=== PATIENT | female | born 1945 | race Caucasian/White ===

== ENCOUNTER 2018-12-18 07:31 | Emergency (ER) | payer MEDICARE ==
[2018-12-18 07:48] VITALS: BP 168/81
--- NOTE | 2018-12-18 08:39 | EDM.PDOC ---
ED HPI GENERAL MEDICAL PROBLEM - General Chief Complaint: Genitourinary Problem Stated Complaint: BLOOD IN URINE Time Seen by Provider: 12/18/18 08:00 Source of Information: Reports: Patient History Limitations: Reports: No Limitations - History of Present Illness INITIAL COMMENTS - FREE TEXT/NARRATIVE: 73-year-old female with hematuria since last night. She has slight low back discomfort but no significant dysuria or increased frequency. No previous history of hematuria, she is not on anticoagulants. No trauma. Denies abdominal pain. Onset: Sudden Duration: Other (Roughly 12 hours) - Related Data Allergies Allergy/AdvReac Type Severity Reaction Status Date / Time amoxicillin Allergy Severe Swelling Verified 12/18/18 07:50 lidocaine [From Topicaine] Allergy Redness Verified 12/18/18 07:50 Home Meds: Home Meds Aspirin [Ted Chewable Aspirin] 1 tab PO DAILY 06/28/15 [History] Multivitamin [Multivitamins] 1 tab PO DAILY 06/28/15 [History] Past Medical History HEENT History: Reports: Cataract, Impaired Vision Gastrointestinal History: Reports: Chronic Constipation Genitourinary History: Reports: Retention, Urinary, Urinary Incontinence 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 L5. Musculoskeletal Surgical History: Reports: Hip Replacement, Other (See Below) Other Musculoskeletal Surgeries/Procedures:: partial left hip replacement, arm fracture repair Dermatological Surgical History: Reports: None Social & Family History - Family History Family Medical History: Noncontributory - Tobacco Use Smoking Status *Q: Current Every Day Smoker Years of Tobacco use: 55 Packs/Tins Daily: 0.5 Used Tobacco, but Quit: No Second Hand Smoke Exposure: No - Caffeine Use Caffeine Use: Reports: Coffee - Recreational Drug Use Recreational Drug Use: No ED ROS GENERAL - Review of Systems Review Of Systems: See Below Constitutional: Denies: Fever Respiratory: Denies: Shortness of Breath Cardiovascular: Denies: Chest Pain GI/Abdominal: Denies: Abdominal Pain, Nausea, Vomiting : Reports: Hematuria. Denies: Dysuria, Frequency, Urinary Retention Musculoskeletal: Reports: Back Pain (Chronic back pain) Skin: Reports: No Symptoms Neurological: Denies: Paresthesia Psychiatric: Reports: No Symptoms ED EXAM, RENAL/ - Physical Exam Exam: See Below Exam Limited By: No Limitations General Appearance: Alert, No Apparent Distress Respiratory/Chest: No Respiratory Distress, Lungs Clear GI/Abdominal: Soft, Non-Tender Back Exam: No: CVA Tenderness (R), CVA Tenderness (L) Neurological: Alert, Oriented Psychiatric: Normal Affect, Normal Mood Skin Exam: Warm, Dry Course - Vital Signs Last Recorded V/S: Last Vital Signs Temp 97.0 F 12/18/18 07:51 Pulse 92 12/18/18 07:51 Resp 16 12/18/18 07:51 BP 168/81 H 12/18/18 07:51 Pulse Ox 92 L 12/18/18 07:51 - Orders/Labs/Meds Orders: Active Orders 24 hr Category Date Time Status CULTURE URINE [RM] Stat Lab 12/18/18 08:58 Received Labs: Laboratory Tests 12/18/18 Range/Units 08:28 Urine Color Red Urine Appearance Turbid Urine pH 7.0 (4.5-8.0) Ur Specific [place] 1.015 (1.008-1.030) Urine Protein 100 H (NEGATIVE) mg/dL Urine Glucose (UA) Normal (NEGATIVE) mg/dL Urine Ketones Negative (NEGATIVE) mg/dL Urine Occult Blood Large (NEGATIVE) Urine Nitrite Negative (NEGATIVE) Urine Bilirubin Negative (NEGATIVE) Urine Urobilinogen Normal (NORMAL) mg/dL Ur Leukocyte Esterase Moderate (NEGATIVE) Urine RBC Packed H (0-5) Urine WBC 20-30 H (0-5) Ur Epithelial Cells Few Amorphous Sediment Not seen Urine Bacteria Few Urine Mucus Not seen - Re-Assessments/Exams Free Text/Narrative Re-Assessment/Exam: 12/18/18 08:39 A UA was obtained. 12/18/18 09:02 UA shows packed RBCs, also white blood cells and bacteria. A culture was initiated, and the patient was placed on Macrobid 100 mg twice daily. She'll return if worsening despite treatment such as heavier bleeding, dizziness or fever or increased pain. Otherwise recheck the urine in one week. Departure - Departure Time of Disposition: 09:13 Disposition: Home, Self-Care 01 Condition: Good Clinical Impression: Cystitis Hematuria Qualifiers: Hematuria type: gross Qualified Code(s): R31.0 - Gross hematuria - Discharge Information Instructions: Hematuria, Adult Referrals: Man Ann MD [Primary Care Provider] - Forms: ED Department Discharge Care Plan Goals: Take antibiotic twice daily for 7 days. Recheck the urine after you are done with the antibiotic. Return sooner if not improving after 2 or 3 days or any time if worsening such as increased pain or fever. - My Orders Last 24 Hours: My Active Orders 12/18/18 08:58 CULTURE URINE [RM] Stat - Assessment/Plan Last 24 Hours: My Active Orders 12/18/18 08:58 CULTURE URINE [RM] Stat
== END 2018-12-18 09:15 | disposition home or self-care (01) ==
LOC: JP.ED 07:31
DX: N30.91 Cystitis, unspecified with hematuria (principal); F17.210 Nicotine dependence, cigarettes, uncomplicated; Z88.0 Allergy status to penicillin; Z88.4 Allergy status to anesthetic agent; Z79.82 Long term (current) use of aspirin
CPT/HCPCS: 81001; 87086; 99283; 99284

== ENCOUNTER 2021-07-02 14:49 | Emergency (ER) | payer MEDICARE ==
--- NOTE | 2021-07-02 16:04 | EDM.PDOC ---
ED HPI GENERAL MEDICAL PROBLEM - General Chief Complaint: Genitourinary Problem Stated Complaint: DIFFICULTY URINATING Time Seen by Provider: 07/02/21 15:29 Source of Information: Reports: Patient History Limitations: Reports: No Limitations - History of Present Illness INITIAL COMMENTS - FREE TEXT/NARRATIVE: 75 yo female presents today with increasing hematuria. She has just finished 7 days of macrobid for UTI and states that the bleeding has worsened. She does not feel ill. denies fevers. has had a decrease in appetite. denies fatigue or lightheadedness. She does feel that she is not fully emptying her bladder when she urinates. the hematuria has been intermittent over the last 3 years. 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 L5. Musculoskeletal Surgical History: Reports: Hip Replacement, Other (See Below) Other Musculoskeletal Surgeries/Procedures:: partial left hip replacement, arm fracture repair Dermatological Surgical History: Reports: None Social & Family History - Family History Family Medical History: No Pertinent Family History - Tobacco Use Tobacco Use Status *Q: Current Every Day Tobacco User Years of Tobacco use: 40 Packs/Tins Daily: 0.5 - Caffeine Use Caffeine Use: Reports: Coffee - Recreational Drug Use Recreational Drug Use: No ED ROS GENERAL - Review of Systems Review Of Systems: See Below Constitutional: Denies: Fever, Chills, Malaise, Fatigue Respiratory: Denies: Shortness of Breath, Wheezing, Cough Cardiovascular: Denies: Chest Pain GI/Abdominal: Reports: Anorexia. Denies: Abdominal Pain, Constipation, Diarrhea : Reports: Dysuria, Hematuria. Denies: Flank Pain ED EXAM, GI/ABD - Physical Exam Exam: See Below Exam Limited By: No Limitations General Appearance: Alert, WD/WN, No Apparent Distress Respiratory/Chest: No Respiratory Distress, Lungs Clear, Normal Breath Sounds, No Accessory Muscle Use, Chest Non-Tender. No: Crackles, Rhonchi, Wheezing Cardiovascular: Regular Rate, Rhythm, No Murmur GI/Abdominal Exam: Soft, Tender (suprapubic tenderness/fullness) Course - Vital Signs Last Recorded V/S: Last Vital Signs Temp 36.5 C 07/02/21 15:13 Pulse 80 07/02/21 17:38 Resp 12 07/02/21 17:38 BP 149/92 H 07/02/21 17:38 Pulse Ox 94 L 07/02/21 17:38 - Orders/Labs/Meds Orders: Active Orders 24 hr Category Date Time Status Iopamidol [Isovue-300 (61%)] Med 07/02/21 17:05 Active 96 ml IV . DIRECTED PRN Sodium Chloride 0.9% [Normal Saline] 1,000 ml Med 07/02/21 16:15 Active IV ASDIRECTED Sodium Chloride 0.9% [Normal Saline] 100 ml Med 07/02/21 17:15 Active IV ASDIRECTED Medication Orders Sodium Chloride (Normal Saline) 1,000 mls @ 500 mls/hr IV ASDIRECTED SANTOS Last Admin: 07/02/21 16:12 Dose: 500 mls/hr Documented by: SONY Sodium Chloride (Normal Saline) 100 mls @ 3 mls/sec IV ASDIRECTED SANTOS Last Admin: 07/02/21 17:35 Dose: 3 mls/sec Documented by: OSMAN Iopamidol (Iopamidol 612 Mg/Ml 100 Ml Bottle) 96 ml IV . DIRECTED PRN PRN Reason: RADIOLOGY EXAM Stop: 07/03/21 17:06 Last Admin: 07/02/21 17:34 Dose: 96 ml Documented by: OSMAN Labs: Laboratory Tests 07/02/21 07/02/2121 Range/Units 15:56 16:20 16:20 WBC 6.8 (4.5-11.0) K/uL RBC 4.33 (3.30-5.50) M/uL Hgb 13.0 (12.0-15.0) g/dL Hct 39.6 (36.0-48.0) % MCV 92 (80-98) fL MCH 30 (27-31) pg MCHC 33 (32-36) % Plt Count 214 (150-400) K/uL Neut % (Auto) 49.2 (36-66) % Lymph % (Auto) 36.5 (24-44) % [place] % (Auto) 11.7 H (2-6) % Eos % (Auto) 2.3 (2-4) % Baso % (Auto) 0.3 (0-1) % Sodium 137 L (140-148) mmol/L Potassium 4.3 (3.6-5.2) mmol/L Chloride 101 (100-108) mmol/L Carbon Dioxide 31 (21-32) mmol/L Anion Gap 9.3 (5.0-14.0) mmol/L BUN 20 H (7-18) mg/dL Creatinine 0.7 (0.6-1.0) mg/dL Est Cr Clr Drug Dosing 59.96 mL/min Estimated GFR (MDRD) > 60 (>60) Glucose 84 (74-106) mg/dL Calcium 9.0 (8.5-10.1) mg/dL Urine Color Red A (YELLOW) Urine Appearance Turbid A (CLEAR) Urine Occult Blood Large H (NEGATIVE) Urine RBC Packed H (0-5) Urine WBC 0-5 (0-5) Ur Epithelial Cells Not seen Amorphous Sediment Not seen Urine Bacteria Few Urine Mucus Not seen Urine Other Urinalysis Comment Meds: Medications Generic Name Dose Route Start Last Admin Trade Name Freq PRN Reason Stop Dose Admin Sodium Chloride 1,000 mls @ 500 mls/hr 07/02/21 16:15 07/02/21 16:12 Normal Saline IV 500 mls/hr ASDIRECTED SANTOS Administration Sodium Chloride 100 mls @ 3 mls/sec 07/02/21 17:15 07/02/21 17:35 Normal Saline IV 3 mls/sec ASDIRECTED SANTOS Administration Iopamidol 96 ml 07/02/21 17:05 07/02/21 17:34 Iopamidol 612 Mg/Ml 100 Ml Bottle IV 07/03/21 17:06 96 ml . DIRECTED PRN Administration RADIOLOGY EXAM Discontinued Medications Generic Name Dose Route Start Last Admin Trade Name Samm PRN Reason Stop Dose Admin Sodium Chloride 10 ml 07/02/21 17:05 07/02/21 17:35 Sodium Chloride 0.9% 10 Ml Sdv FLUSH 07/02/21 17:06 10 ml ONETIME ONE Administration - Re-Assessments/Exams Free Text/Narrative Re-Assessment/Exam: 07/02/21 18:35 UA was obtained upon arrival. This sample had clots and tissue. analysis was not indicative of acute UTI but awaiting culture. HGB normal with normal red blood cell size and volume. She did have post void residual greater then 400 so cath was placed resulting in clots then pnk colored urine. She had great relief. CT completed. pt will follow-up with PCP with destination urology for full evaluation of gaby hematuria Departure - Departure Time of Disposition: 18:38 Disposition: Home, Self-Care 01 Condition: Good Clinical Impression: Hematuria Qualifiers: Hematuria type: gross Qualified Code(s): R31.0 - Gross hematuria - Discharge Information *PRESCRIPTION DRUG MONITORING PROGRAM REVIEWED*: Not Applicable *COPY OF PRESCRIPTION DRUG MONITORING REPORT IN PATIENT MICHELA: Not Applicable Instructions: Hematuria, Adult Referrals: Man Ann MD [Primary Care Provider] - Forms: ED Department Discharge Additional Instructions: follow-up with your primary care provider this week request urology consultation for full evaluation of gaby hematuria maintain fluid intake at greater then 64 ounces you will be contacted if urine culture grows bacteria that would need to be treated Sepsis Event Note (ED) - Evaluation Sepsis Screening Result: No Definite Risk - Focused Exam Vital Signs: Vital Signs Temp Pulse Resp BP Pulse Ox 07/02/21 17:38 80 12 149/92 H 94 L 07/02/21 16:16 78 12 160/78 H 95 07/02/21 15:13 36.5 C 78 16 174/62 H 96 07/02/21 15:05 36.5 C 78 16 174/62 H 96 - My Orders Last 24 Hours: My Active Orders 07/02/21 16:15 Sodium Chloride 0.9% [Normal Saline] 1,000 ml IV ASDIRECTED 07/02/21 17:05 Iopamidol [Isovue-300 (61%)] 96 ml IV . DIRECTED PRN 07/02/21 17:15 Sodium Chloride 0.9% [Normal Saline] 100 ml IV ASDIRECTED - Assessment/Plan Last 24 Hours: My Active Orders 07/02/21 16:15 Sodium Chloride 0.9% [Normal Saline] 1,000 ml IV ASDIRECTED 07/02/21 17:05 Iopamidol [Isovue-300 (61%)] 96 ml IV . DIRECTED PRN 07/02/21 17:15 Sodium Chloride 0.9% [Normal Saline] 100 ml IV ASDIRECTED
[2021-07-02] MEDS ORDERED: Sodium Chloride 0.9% 1,000 ML IV SCH (16:15)
[2021-07-02] MEDS ORDERED: Sodium Chloride 0.9% 10 ML SDV FLUSH ONE (17:05)
[2021-07-02] MEDS ORDERED: Iopamidol 612 MG/ML 100 ML Bottle IV PRN (17:05)
[2021-07-02] MEDS ORDERED: Sodium Chloride 0.9% 100 ML IV SCH (17:15)
[2021-07-02 17:39] VITALS: BP 149/92; PULSE 80
--- NOTE | 2021-07-02 18:19 | CRLCT ---
For Patients: As a result of the Century Cures Act, medical imaging exams and procedure reports are released immediately into your electronic medical record. You may view this report before your referring provider. If you have questions, please contact your health care provider. Indication: Unable to urinate. Blood in urine. Technique: Contrast CT abdomen and pelvis. Comparison: CT abdomen and pelvis 05/22/2018 Findings: The heart size is normal. Basilar atelectasis. No effusion. Spleen adrenal glands unremarkable liver unremarkable gallbladder unremarkable. No abdominal aortic aneurysm. Symmetric enhancement of both kidneys nonobstructing renal calculi. Bilateral renal cysts. No hydronephrosis. Large amount of stool within the colon diverticulosis. No obstruction. Left hip arthroplasty causing streak artifact in the pelvis with poor visualization urinary bladder. There a Schumacher in the urinary bladder which grossly is unremarkable but difficult to visualize given significant streak artifact. 2.3 centimeter right adnexal cyst is slightly increased in size since prior study. Umbilical hernia with small amount of fluid in the hernia and fat. Moderate L1 compression fracture age indeterminate. Old right superior pubic ramus and bilateral inferior pubic rami fractures. Impression: 1. Bilateral renal cysts. No hydronephrosis. Schumacher in the urinary bladder which is difficult to visualize given streak artifact. 2. No acute findings in the abdomen or pelvis. Abundant stool in the colon diverticulosis. 3. Minimal enlargement of right adnexal cyst measuring 2.3 centimeters recommend routine pelvic ultrasound. Please note that all CT scans at this facility use dose modulation, iterative reconstruction, and/or weight-based dosing when appropriate to reduce radiation dose to as low as reasonably achievable. Dictated by Kath Calderon MD @ 07/02/2021 6:18:32 PM (Electronically Signed)
== END 2021-07-02 19:06 | disposition home or self-care (01) ==
LOC: JP.ED 14:49
DX: R31.0 Gross hematuria (principal); Z88.0 Allergy status to penicillin; Z88.4 Allergy status to anesthetic agent; Z79.82 Long term (current) use of aspirin; Z72.0 Tobacco use
CPT/HCPCS: 36415; 74177; 80048; 81001; 85025; 87086; 99284; J7030; Q9967

== ENCOUNTER 2021-07-03 10:35 | Emergency (ER) | payer MEDICARE ==
[2021-07-03 11:06] VITALS: BP 139/70; PULSE 79
--- NOTE | 2021-07-03 11:52 | EDM.PDOC ---
ED HPI GENERAL MEDICAL PROBLEM - General Chief Complaint: Genitourinary Problem Stated Complaint: CANNOT PASS URINE Time Seen by Provider: 07/03/21 11:11 Source of Information: Reports: Patient History Limitations: Reports: No Limitations - History of Present Illness INITIAL COMMENTS - FREE TEXT/NARRATIVE: 75 yo female presents to the ER for the 2nd time this weekend with inability to void. She has gaby hematuria. This has been present for many days. Yesterday a catheter was placed and initially clots and tissue passed then pink tinged urine. Cath was removed when she departed the ER. After discharge she urinated normally throughout the rest of the evening, one time through the night. On waking this AM she was unable to pass her urine. She became increasingly un comfortable with suprapubic pressure. denies nausea or vomiting, diarrhea or general ill feeling. She denies lightheadedness. She was able to walk the 4 block from her apartment to the hospital without difficulty. 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 L5. Musculoskeletal Surgical History: Reports: Hip Replacement, Other (See Below) Other Musculoskeletal Surgeries/Procedures:: partial left hip replacement, arm fracture repair Dermatological Surgical History: Reports: None Social & Family History - Family History Family Medical History: No Pertinent Family History - Tobacco Use Tobacco Use Status *Q: Never Tobacco User - Caffeine Use Caffeine Use: Reports: Coffee ED ROS GENERAL - Review of Systems Review Of Systems: See Below Constitutional: Denies: Fever, Chills, Fatigue Respiratory: Denies: Shortness of Breath, Wheezing, Cough Cardiovascular: Denies: Chest Pain GI/Abdominal: Denies: Abdominal Pain : Reports: Hematuria, Urinary Retention ED EXAM, GI/ABD - Physical Exam Exam: See Below Exam Limited By: No Limitations General Appearance: Alert, WD/WN, No Apparent Distress Head: Atraumatic, Normocephalic Respiratory/Chest: No Respiratory Distress, Lungs Clear, Normal Breath Sounds. No: Crackles, Rhonchi, Wheezing Cardiovascular: Regular Rate, Rhythm, No Murmur GI/Abdominal Exam: Normal Bowel Sounds, Soft, Non-Tender Back Exam: No: CVA Tenderness (R), CVA Tenderness (L) Neurological: Alert, Oriented Psychiatric: Normal Affect, Normal Mood Skin Exam: Warm, Dry, Intact Course - Vital Signs Last Recorded V/S: Last Vital Signs Temp 36.6 C 07/03/21 11:10 Pulse 79 07/03/21 11:10 Resp 16 07/03/21 11:10 BP 139/70 07/03/21 11:10 Pulse Ox 90 L 07/03/21 11:10 - Orders/Labs/Meds Labs: Laboratory Tests 07/03/21 07/03/21 Range/Units 11:38 11:58 Hgb 13.0 (12.0-15.0) g/dL Urine Color Red A (YELLOW) Urine Appearance Turbid A (CLEAR) Urine pH 5.5 (5.0-8.0) Ur Specific [place] 1.015 (1.008-1.030) Urine Protein (NEGATIVE) mg/dL Urine Glucose (UA) Negative (NEGATIVE) mg/dL Urine Ketones (NEGATIVE) mg/dL Urine Occult Blood Large H (NEGATIVE) Urine Nitrite Negative (NEGATIVE) Urine Bilirubin (NEGATIVE) Urine Urobilinogen (0.2-1.0) EU/dL Ur Leukocyte Esterase (NEGATIVE) Urine RBC Packed H (0-5) Urine WBC 30-40 H (0-5) Ur Epithelial Cells Not seen Amorphous Sediment Not seen Urine Bacteria Moderate Urine Mucus Few - Re-Assessments/Exams Free Text/Narrative Re-Assessment/Exam: 07/03/21 12:19 pt evaluated on arrival to ER in no apparent distress. Cath was placed and her pelvic pressure was relieved. sample was collected and today's sample did have WBC and moderate bacteria without nitrates. will culture and start on antibiotics today. She has just finished a coarse of Macrobid last week will initiate cipro 250 mg twice daily for 7 days. She will DC home with catheter to follow-up tomorrow morning with PCP. Departure - Departure Time of Disposition: 12:24 Disposition: Home, Self-Care 01 Condition: Good Clinical Impression: UTI, Urinary tract infectious disease, Urinary retention Hematuria Qualifiers: Hematuria type: gross Qualified Code(s): R31.0 - Gross hematuria - Discharge Information *PRESCRIPTION DRUG MONITORING PROGRAM REVIEWED*: Not Applicable *COPY OF PRESCRIPTION DRUG MONITORING REPORT IN PATIENT MICHELA: Not Applicable Instructions: Indwelling Urinary Catheter Care, Adult Referrals: Man Ann MD [Primary Care Provider] - Forms: ED Department Discharge Additional Instructions: follow-up with your primary care tomorrow morning and ask for a urology referral he may want to see you in clinic let him know that you were in the emergency room twice this weekend with urinary retention and gaby bloody urine today's urine sample had bacteria and WBC so antibiotic was started today. your hemiglobin was 13 yesterday and also 13 today, so that is doing good goal fluid intake is 64 ounce per day Sepsis Event Note (ED) - Evaluation Sepsis Screening Result: No Definite Risk - Focused Exam Vital Signs: Vital Signs Temp Pulse Resp BP Pulse Ox 07/03/21 11:10 36.6 C 79 16 139/70 90 L 07/03/21 11:05 36.6 C 79 16 139/70 90 L
== END 2021-07-03 13:05 | disposition home or self-care (01) ==
LOC: JP.ED 10:35
DX: N39.0 Urinary tract infection, site not specified (principal); R33.9 Retention of urine, unspecified; R31.9 Hematuria, unspecified; Z88.0 Allergy status to penicillin; Z88.4 Allergy status to anesthetic agent; Z79.82 Long term (current) use of aspirin
CPT/HCPCS: 36415; 51702; 81001; 85018; 99284-25

== ENCOUNTER 2021-07-11 00:56 | Emergency (ER) | payer MEDICARE ==
[2021-07-11 01:15] VITALS: BP 140/80; PULSE 87
--- NOTE | 2021-07-11 01:33 | EDM.PDOC ---
ED HPI GENERAL MEDICAL PROBLEM - General Chief Complaint: Genitourinary Problem Stated Complaint: CATH ISSUES Time Seen by Provider: 07/11/21 01:28 Source of Information: Reports: Patient, Old Records, RN History Limitations: Reports: No Limitations - History of Present Illness INITIAL COMMENTS - FREE TEXT/NARRATIVE: 75 yo female here with urinary retention. No fever, chills, nausea or vomiting. Got her last catheter out this past Saturday and did OK until tonight when she awoke with a full bladder and unable to void. Is followed by urology for this problem. 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: Other (see below) (none) Left Middle Bladder Pain Score (Numeric/FACES): 8 - Related Data Allergies Allergy/AdvReac Type Severity Reaction Status Date / Time amoxicillin Allergy Severe Swelling Verified 07/03/21 11:11 lidocaine [From Topicaine] Allergy Redness Verified 07/03/21 11:11 Home Meds: Home Meds Aspirin [Ted Chewable Aspirin] 1 tab PO DAILY 06/28/15 [History] Multivitamin [Multivitamins] 1 tab PO DAILY 06/28/15 [History] Past Medical History HEENT History: Reports: Cataract, Impaired Vision Gastrointestinal History: Reports: Chronic Constipation Genitourinary History: Reports: Retention, Urinary, Urinary Incontinence 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 L5. Musculoskeletal Surgical History: Reports: Hip Replacement, Other (See Below) Other Musculoskeletal Surgeries/Procedures:: partial left hip replacement, arm fracture repair Dermatological Surgical History: Reports: None Social & Family History - Family History Family Medical History: No Pertinent Family History - Tobacco Use Tobacco Use Status *Q: Current Every Day Tobacco User Years of Tobacco use: 54 Packs/Tins Daily: 0.5 - Caffeine Use Caffeine Use: Reports: Coffee - Recreational Drug Use Recreational Drug Use: No ED ROS GENERAL - Review of Systems Review Of Systems: See Below Constitutional: Reports: No Symptoms : Reports: Urinary Retention Skin: Reports: No Symptoms Neurological: Reports: No Symptoms ED EXAM, RENAL/ - Physical Exam Exam: See Below Exam Limited By: No Limitations General Appearance: Alert, WD/WN, Mild Distress (Female) Exam: Other (bladder distention on exam and per bladder scan) Back Exam: Normal Inspection. No: CVA Tenderness (R), CVA Tenderness (L) Extremities: Normal Inspection, Normal Range of Motion, Non-Tender, No Pedal Edema Neurological: Alert, Oriented, CN II-XII Intact, Normal Cognition, No Motor/Sensory Deficits Psychiatric: Normal Affect, Normal Mood Skin Exam: Warm, Dry, Intact, Normal Color, No Rash Course - Vital Signs Last Recorded V/S: Last Vital Signs Temp 36.4 C 07/11/21 01:11 Pulse 87 07/11/21 01:11 Resp 16 07/11/21 01:11 BP 140/80 07/11/21 01:11 Pulse Ox 92 L 07/11/21 01:11 - Orders/Labs/Meds Orders: Active Orders 24 hr Category Date Time Status Schumacher Catheter Insertion [Insert Urinary Catheter] [OM. Care 07/11/21 01:30 Ordered PC] Q24H Urinary Catheter Assessment [RC] ASDIRECTED Care 07/11/21 01:28 Ordered CULTURE URINE [RM] Stat Lab 07/11/21 01:27 Ordered Departure - Departure Time of Disposition: 01:34 Disposition: Home, Self-Care 01 Condition: Good Clinical Impression: Urinary retention - Discharge Information *PRESCRIPTION DRUG MONITORING PROGRAM REVIEWED*: Not Applicable *COPY OF PRESCRIPTION DRUG MONITORING REPORT IN PATIENT MICHELA: Not Applicable Referrals: PCP,None [Primary Care Provider] - Additional Instructions: Follow up with urology as scheduled. Return as needed. Sepsis Event Note (ED) - Evaluation Sepsis Screening Result: No Definite Risk - Focused Exam Vital Signs: Vital Signs Temp Pulse Resp BP Pulse Ox 07/11/21 01:11 36.4 C 87 16 140/80 92 L - My Orders Last 24 Hours: My Active Orders 07/11/21 01:27 CULTURE URINE [RM] Stat 07/11/21 01:28 Urinary Catheter Assessment [RC] ASDIRECTED 07/11/21 01:30 Schumacher Catheter Insertion [Insert Urinary Catheter] [OM.PC] Q24H - Assessment/Plan Last 24 Hours: My Active Orders 07/11/21 01:27 CULTURE URINE [RM] Stat 07/11/21 01:28 Urinary Catheter Assessment [RC] ASDIRECTED 07/11/21 01:30 Schumacher Catheter Insertion [Insert Urinary Catheter] [OM.PC] Q24H
== END 2021-07-11 01:57 | disposition home or self-care (01) ==
LOC: JP.ED 00:56
DX: R33.9 Retention of urine, unspecified (principal); Z88.0 Allergy status to penicillin; Z88.6 Allergy status to analgesic agent; Z79.82 Long term (current) use of aspirin; Z72.0 Tobacco use
CPT/HCPCS: 51702; 87086; 99284-25

== ENCOUNTER 2021-07-15 08:34 | Emergency (ER) | payer MEDICARE ==
[2021-07-15] MEDS ORDERED: Ketorolac 10 MG Tab PO ONE (09:15)
--- NOTE | 2021-07-15 09:29 | EDM.PDOC ---
ED HPI GENERAL MEDICAL PROBLEM - General Chief Complaint: Back Pain or Injury Stated Complaint: back pain Time Seen by Provider: 07/15/21 09:10 Source of Information: Reports: Patient History Limitations: Reports: No Limitations - History of Present Illness INITIAL COMMENTS - FREE TEXT/NARRATIVE: 75-year-old female with chronic recurring lower back issues, also known lumbar disc disease, had been doing relatively well but this morning she was pushing a bed when she felt a snap in her right lower back. She did not have a lot of pain right away but she came diaphoretic and lightheaded and had to sit down. When she tried to get up she noticed that was intense local pain in the right lumbar area just above the sacrum. No radiculopathy, no symptoms down her legs, no nausea or vomiting. She called her [id number] to come in and have her examined, she has very little discomfort if lying still but movement causes increased pain. She has not taken anything for pain at this point. Onset: Sudden Duration: Hour(s): (Within the last 2 hours) Location: Reports: Other (Right lumbar spine) Improves with: Reports: Rest Worsens with: Reports: Movement back Pain Score (Numeric/FACES): 7 - Related Data Allergies Allergy/AdvReac Type Severity Reaction Status Date / Time amoxicillin Allergy Severe Swelling Verified 07/15/21 08:55 lidocaine [From Topicaine] Allergy Redness Verified 07/15/21 08:55 Home Meds: Home Meds Aspirin [Ted Chewable Aspirin] 1 tab PO DAILY 06/28/15 [History] Multivitamin [Multivitamins] 1 tab PO DAILY 06/28/15 [History] Past Medical History HEENT History: Reports: Cataract, Impaired Vision Gastrointestinal History: Reports: Chronic Constipation Genitourinary History: Reports: Retention, Urinary, Urinary Incontinence, UTI, Recurrent, Other (See Below) Other Genitourinary History: indwelling catheter until cystoscopy 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 L5. Musculoskeletal Surgical History: Reports: Hip Replacement, Other (See Below) Other Musculoskeletal Surgeries/Procedures:: partial left hip replacement, arm fracture repair Dermatological Surgical History: Reports: None Social & Family History - Family History Family Medical History: No Pertinent Family History - Tobacco Use Tobacco Use Status *Q: Current Every Day Tobacco User Years of Tobacco use: 60 Packs/Tins Daily: 0.5 - Caffeine Use Caffeine Use: Reports: Coffee - Recreational Drug Use Recreational Drug Use: No ED ROS GENERAL - Review of Systems Review Of Systems: See Below Constitutional: Denies: Fever, Chills, Malaise HEENT: Reports: No Symptoms Respiratory: Denies: Shortness of Breath Cardiovascular: Denies: Chest Pain Endocrine: Denies: Fatigue GI/Abdominal: Reports: Nausea (Some nausea initially, that is resolved). Denies: Abdominal Pain, Vomiting : Reports: Other (She has an indwelling catheter) Musculoskeletal: Reports: Back Pain (See HPI) Skin: Denies: Rash, Erythema Neurological: Denies: Paresthesia Psychiatric: Reports: No Symptoms ED EXAM,LOWER BACK PAIN/INJURY - Physical Exam Exam: See Below Exam Limited By: No Limitations General Appearance: Alert, No Apparent Distress, Other (Patient is resting supine comfortably on the exam bed) Eye Exam: Bilateral Eye: Normal Inspection Head: Atraumatic Neck: Supple, Non-Tender Respiratory/Chest: Lungs Clear Cardiovascular: Regular Rate, Rhythm Back Exam: Paraspinal Tenderness (Patient has significant focal paraspinal tenderness when palpating to the right of the lumbar spine above the sacrum around the L4 and L5 area) Extremities: Other (Just minimal increase in back pain with movement of the hips passively including internal and external rotation of both hips, no straight l eg raising symptoms other than a mild pulling of her back) Course - Vital Signs Last Recorded V/S: Last Vital Signs Temp 97.6 F 07/15/21 09:01 Pulse 66 07/15/21 10:00 Resp 12 07/15/21 10:00 BP 142/59 H 07/15/21 10:00 Pulse Ox 92 L 07/15/21 10:00 - Orders/Labs/Meds Meds: Medications Discontinued Medications Generic Name Dose Route Start Last Admin Trade Name Freq PRN Reason Stop Dose Admin Ketorolac Tromethamine 10 mg 07/15/21 09:15 07/15/21 09:28 Ketorolac 10 Mg Tab PO 07/15/21 09:16 10 mg ONETIME ONE Administration - Re-Assessments/Exams Free Text/Narrative Re-Assessment/Exam: 07/15/21 09:28 I am concerned she may have injured a transverse process rather than just a ligament injury, so a CT of the lumbar spine without contrast was ordered. If this is negative this is a soft tissue injury and will be treated conservatively. 07/15/21 10:48 IMPRESSION: 1. No acute abnormality apparent. 2. Moderate L1 compression fracture and mild compression fractures of L3 and L5, as before. 3. Osteopenia/osteoporosis. 4. Multilevel degenerative changes, including L5-S1 fusion. No clearly significant canal or foraminal stenosis. Oral Toradol seem to help, she is moving better. She will be discharged with 10 doses of Toradol to take twice a day and encouraged to increase activity as tolerated. She can return anytime if worsening or consider recheck in 3 to 4 days if not improving satisfactorily. Departure - Departure Time of Disposition: 11:18 Disposition: Home, Self-Care 01 Clinical Impression: Acute low back pain Qualifiers: Back pain laterality: right Sciatica presence: without sciatica Qualified Code(s): M54.5 - Low back pain - Discharge Information Instructions: Acute Back Pain, Adult Referrals: Man Ann MD [Primary Care Provider] - Forms: ED Department Discharge Care Plan Goals: Take 1 ketorolac pill twice daily and continue your other regular medications as well. It is safe to take Tylenol along with ketorolac. Return anytime if worsening despite treatment, or consider rechecking in 3 or 4 days if not improving satisfactorily. Physical therapy may be necessary or advised at that time. Sepsis Event Note (ED) - Evaluation Sepsis Screening Result: No Definite Risk - Focused Exam Vital Signs: Vital Signs Temp Pulse Resp BP Pulse Ox 07/15/21 10:00 66 12 142/59 H 92 L 07/15/21 09:01 97.6 F 71 16 139/62 93 L 07/15/21 08:54 97.6 F 71 16 139/62 93 L
[2021-07-15 10:43] VITALS: BP 142/59; PULSE 66
--- NOTE | 2021-07-15 10:43 | CRLCT ---
For Patients: As a result of the Century Cures Act, medical imaging exams and procedure reports are released immediately into your electronic medical record. You may view this report before your referring provider. If you have questions, please contact your health care provider. INDICATION: Sudden pain and crack while pushing on something. TECHNIQUE: Volumetric helical scanning of the lumbar spine was performed without contrast material. Sagittal and coronal reconstructions were also obtained. COMPARISON: Abdomen/pelvis CT of 07/02/2021. FINDINGS: There is no obvious acute fracture. A moderate L1 compression fracture is demonstrated as well as mild L3 and L5 compression fractures, as on the previous examination. Multilevel degenerative changes are again demonstrated. L5 and S1 are fused. No spondylolisthesis or curvature abnormality is noted. There is no clearly significant canal or foraminal stenosis. The bones are osteopenic/osteoporotic. IMPRESSION: 1. No acute abnormality apparent. 2. Moderate L1 compression fracture and mild compression fractures of L3 and L5, as before. 3. Osteopenia/osteoporosis. 4. Multilevel degenerative changes, including L5-S1 fusion. No clearly significant canal or foraminal stenosis. Please note that all CT scans at this facility use dose modulation, iterative reconstruction, and/or weight-based dosing when appropriate to reduce radiation dose to as low as reasonably achievable. Dictated by Rosales Pruitt MD @ 07/15/2021 10:41:52 AM (Electronically Signed)
== END 2021-07-15 11:18 | disposition home or self-care (01) ==
LOC: JP.ED 08:34
DX: M54.5 Low back pain (principal); Z88.0 Allergy status to penicillin; Z88.6 Allergy status to analgesic agent; Z79.82 Long term (current) use of aspirin; Z72.0 Tobacco use
CPT/HCPCS: 72131; 99283-25; A9270-GY

== ENCOUNTER 2021-07-24 10:02 | Emergency (ER) | payer MEDICARE ==
[2021-07-24 10:19] VITALS: BP 144/72; PULSE 97
--- NOTE | 2021-07-24 10:48 | EDM.PDOC ---
ED HPI GENERAL MEDICAL PROBLEM - General Chief Complaint: General Stated Complaint: DR SAID SHE HAD AN INFECTION,NEEDS BLOOD TEST Time Seen by Provider: 07/24/21 10:26 Source of Information: Reports: Patient, Old Records, RN Notes Reviewed History Limitations: Reports: No Limitations - History of Present Illness INITIAL COMMENTS - FREE TEXT/NARRATIVE: 75-year-old female presents emergency department today unsure exactly why she is here. She states her physician in [place] told her to go to the emergency department to get a blood test. However I did review the records it appears she is following with urology and complaints of blood in the urine and the fever and it looks like a urinalysis has been requested. However she states she has had sinus congestion had fevers with night sweats she is unvaccinated for Covid - Related Data Allergies Allergy/AdvReac Type Severity Reaction Status Date / Time amoxicillin Allergy Severe Swelling Verified 07/24/21 10:20 lidocaine [From Topicaine] Allergy Redness Verified 07/24/21 10:20 Home Meds: Home Meds Multivitamin [Multivitamins] 1 tab PO DAILY 06/28/15 [History] Ketorolac [Toradol] 10 mg PO TID PRN 07/24/21 [History] Sulfamethoxazole/Trimethoprim [Bactrim Ds Tablet] 1 each PO BID #14 tablet 07/24/21 [Rx] Past Medical History HEENT History: Reports: Cataract, Impaired Vision Gastrointestinal History: Reports: Chronic Constipation Genitourinary History: Reports: Retention, Urinary, Urinary Incontinence, UTI, Recurrent, Other (See Below) Other Genitourinary History: indwelling catheter until cystoscopy 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 L5. Musculoskeletal Surgical History: Reports: Hip Replacement, Other (See Below) Other Musculoskeletal Surgeries/Procedures:: partial left hip replacement, arm fracture repair Dermatological Surgical History: Reports: None Social & Family History - Family History Family Medical History: No Pertinent Family History - Tobacco Use Tobacco Use Status *Q: Current Every Day Tobacco User Years of Tobacco use: 60 Packs/Tins Daily: 0.5 - Caffeine Use Caffeine Use: Reports: Coffee - Recreational Drug Use Recreational Drug Use: No ED ROS GENERAL - Review of Systems Review Of Systems: See Below Constitutional: Reports: Fever, Chills, Weakness HEENT: Reports: Sinus Problem Respiratory: Reports: No Symptoms Cardiovascular: Reports: No Symptoms GI/Abdominal: Reports: No Symptoms : Reports: Hematuria ED EXAM, GENERAL - Physical Exam Exam: See Below Exam Limited By: No Limitations General Appearance: Alert, WD/WN, No Apparent Distress Ears: Normal External Exam, Normal Canal, Hearing Grossly Normal, Normal TMs Nose: Normal Inspection, Normal Mucosa, No Blood Throat/Mouth: Normal Inspection, Normal Lips, Normal Teeth, Normal Gums, Normal Oropharynx, Normal Voice, No Airway Compromise Neck: Normal Inspection, Supple, Non-Tender, Full Range of Motion Respiratory/Chest: No Respiratory Distress, Lungs Clear, Normal Breath Sounds, No Accessory Muscle Use, Chest Non-Tender Cardiovascular: Regular Rate, Rhythm, No Murmur GI/Abdominal: Soft, Non-Tender Course - Vital Signs Last Recorded V/S: Last Vital Signs Temp 97.7 F 07/24/21 10:19 Pulse 97 07/24/21 10:19 Resp 16 07/24/21 10:19 BP 144/72 H 07/24/21 10:19 Pulse Ox 93 L 07/24/21 10:19 - Orders/Labs/Meds Orders: Active Orders 24 hr Category Date Time Status CULTURE URINE [RM] Urgent Lab 07/24/21 12:11 Ordered Labs: Laboratory Tests 07/24/21 07/24/21 Range/Units 10:52 10:52 Urine Color Red A (YELLOW) Urine Appearance Turbid A (CLEAR) Urine pH > 9.0 H (5.0-8.0) Ur Specific [place] 1.015 (1.008-1.030) Urine Protein >=300 H (NEGATIVE) mg/dL Urine Glucose (UA) Negative (NEGATIVE) mg/dL Urine Ketones Negative (NEGATIVE) mg/dL Urine Occult Blood Large (NEGATIVE) Urine Nitrite Positive H (NEGATIVE) Urine Bilirubin Small (NEGATIVE) Urine Urobilinogen 1.0 (0.2-1.0) EU/dL Ur Leukocyte Esterase Large (NEGATIVE) Urine RBC 50-75 H (0-5) Urine WBC 40-50 H (0-5) Ur Epithelial Cells Not seen Amorphous Sediment Not seen Urine Bacteria Many Urine Mucus Few Urine Other SARS-CoV-2 RNA (DARRELL) Negative (NEGATIVE) Departure - Departure Time of Disposition: 12:16 Disposition: Home, Self-Care 01 Condition: Fair Clinical Impression: UTI, Urinary tract infectious disease - Discharge Information Prescriptions: Sulfamethoxazole/Trimethoprim [Bactrim Ds Tablet] 1 each PO BID #14 tablet Instructions: Urinary Tract Infection, Adult Referrals: Man Ann MD [Primary Care Provider] - Forms: ED Department Discharge Additional Instructions: Take full course of antibiotics, keep follow-up appointment with urology call return to the emergency department worsening of symptoms Sepsis Event Note (ED) - Focused Exam Vital Signs: Vital Signs Temp Pulse Resp BP Pulse Ox 07/24/21 10:19 97.7 F 97 16 144/72 H 93 L 07/24/21 10:18 97.7 F 97 16 144/72 H 93 L - My Orders Last 24 Hours: My Active Orders 07/24/21 12:11 CULTURE URINE [RM] Urgent - Assessment/Plan Last 24 Hours: My Active Orders 07/24/21 12:11 CULTURE URINE [RM] Urgent Plan: Assessment Acuity = acute Site and laterality = complicated urinary tract infection Etiology = probable bacterial cause Manifestations = none Location of injury = Home Lab values = urinalysis reveals 40-50 WBCs consistent with pyuria 75 200 RBCs consistent with hematuria she is positive for nitrates cultures pending Covid test is negative Plan Elected to treat empirically Bactrim DS 1 tab p.o. twice daily x7 days, keep follow-up appointment with urology This note was dictated using [employer] voice recognition software please call with any questions on syntax or grammar.
== END 2021-07-24 12:38 | disposition home or self-care (01) ==
LOC: JP.ED 10:02
DX: N39.0 Urinary tract infection, site not specified (principal); Z88.0 Allergy status to penicillin; Z88.4 Allergy status to anesthetic agent; Z72.0 Tobacco use; Z20.822 Contact with and (suspected) exposure to COVID-19
CPT/HCPCS: 81001; 87086; 87088; 87186; 99283; U0002

== ENCOUNTER 2021-08-06 12:26 | Emergency (ER) | payer MEDICARE ==
[2021-08-06 12:50] VITALS: BP 150/62; PULSE 90
--- NOTE | 2021-08-06 13:14 | EDM.PDOC ---
ED HPI GENERAL MEDICAL PROBLEM - General Chief Complaint: Genitourinary Problem Stated Complaint: CATHETER PROBLEMS Time Seen by Provider: 08/06/21 13:00 Source of Information: Reports: Patient History Limitations: Reports: No Limitations - History of Present Illness INITIAL COMMENTS - FREE TEXT/NARRATIVE: 75-year-old female who over the past day has had draining around her catheter and no production of urine into the bag itself. She has an obvious catheter obstruction. No abdominal pain or distention. She arrives just wanting a catheter change. Only other complaint is some perineal irritation and tenderness. Onset: Gradual Duration: Hour(s): (12 hours of symptoms) Associated Symptoms: Reports: No Other Symptoms - Related Data Allergies Allergy/AdvReac Type Severity Reaction Status Date / Time amoxicillin Allergy Severe Swelling Verified 08/06/21 12:55 lidocaine [From Topicaine] Allergy Redness Verified 08/06/21 12:55 Home Meds: Home Meds Multivitamin [Multivitamins] 1 tab PO DAILY 06/28/15 [History] Ketorolac [Toradol] 10 mg PO TID PRN 07/24/21 [History] Cyclobenzaprine [Flexeril] 10 mg PO TID PRN 08/06/21 [History] Past Medical History HEENT History: Reports: Cataract, Impaired Vision Gastrointestinal History: Reports: Chronic Constipation Genitourinary History: Reports: Retention, Urinary, Urinary Incontinence, UTI, Recurrent, Other (See Below) Other Genitourinary History: indwelling catheter until cystoscopy [employer]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 L5. Musculoskeletal Surgical History: Reports: Hip Replacement, Other (See Below) Other Musculoskeletal Surgeries/Procedures:: partial left hip replacement, arm fracture repair Social & Family History - Family History Family Medical History: No Pertinent Family History - Tobacco Use Tobacco Use Status *Q: Current Every Day Tobacco User Years of Tobacco use: 50 Packs/Tins Daily: 0.5 - Caffeine Use Caffeine Use: Reports: Coffee - Recreational Drug Use Recreational Drug Use: No ED ROS GENERAL - Review of Systems Review Of Systems: See Below Constitutional: Denies: Fever, Chills Respiratory: Denies: Shortness of Breath Cardiovascular: Denies: Chest Pain GI/Abdominal: Denies: Distension, Nausea, Vomiting Skin: Reports: Rash (Perineal rash, irritated and uncomfortable) ED EXAM, GI/ABD - Physical Exam Exam: See Below Exam Limited By: No Limitations General Appearance: Alert, No Apparent Distress Eyes: Bilateral: Normal Appearance Respiratory/Chest: No Respiratory Distress, Lungs Clear GI/Abdominal Exam: Soft, Non-Tender (Female) Exam: Other (No bladder distention palpable) Neurological: Alert, Oriented Psychiatric: Normal Affect, Normal Mood Skin Exam: Warm, Dry, Other (There is a superficial erosive erythematous rash in the perineum on contact surfaces, the creases are clear) Course - Vital Signs Last Recorded V/S: Last Vital Signs Temp 97.7 F 08/06/21 12:58 Pulse 90 08/06/21 12:58 Resp 16 08/06/21 12:58 BP 150/62 H 08/06/21 12:58 Pulse Ox 97 08/06/21 12:58 - Orders/Labs/Meds Meds: Medications Discontinued Medications Generic Name Dose Route Start Last Admin Trade Name Freq PRN Reason Stop Dose Admin Dimethicone/Zinc Oxide 1 gm 08/06/21 13:45 08/06/21 13:53 Dimethicone 20%/Zinc Oxide 25% 56 Gm [place] Bottle TOP 1 applic ASDIRECTED PRN Administration Rash - Re-Assessments/Exams Free Text/Narrative Re-Assessment/Exam: 08/06/21 13:14 Obstructed Schumacher was removed and a new Schumacher was replaced and is functioning normally. 08/06/21 13:46 Rash relief zinc oxide was applied to the rash area, and she can recheck in a few days as scheduled. Return sooner if more difficulties with her Schumacher catheter. Departure - Departure Time of Disposition: 14:38 Disposition: Home, Self-Care 01 Clinical Impression: Malfunction of Schumacher catheter Qualifiers: Encounter type: initial encounter Qualified Code(s): T83.011A - Breakdown (mechanical) of indwelling urethral catheter, initial encounter Contact dermatitis Qualifiers: Contact dermatitis type: irritant Contact dermatitis trigger: body fluid Type of body fluid: urinary incontinence Qualified Code(s): L24.A2 - Irritant contact dermatitis due to fecal, urinary or dual incontinence - Discharge Information Instructions: Indwelling Urinary Catheter Care, Adult, [id number] Referrals: Man Ann MD [Primary Care Provider] - Forms: ED Department Discharge Care Plan Goals: Return anytime you have recurring difficulties with your Schumacher catheter, otherwise recheck as scheduled. Topical rash relief spray may be helpful, use as directed. Sepsis Event Note (ED) - Evaluation Sepsis Screening Result: No Definite Risk - Focused Exam Vital Signs: Vital Signs Temp Pulse Resp BP Pulse Ox 08/06/21 12:58 97.7 F 90 16 150/62 H 97 08/06/21 12:49 97.7 F 90 16 150/62 H 97
[2021-08-06] MEDS ORDERED: Dimethicone 20%/Zinc Oxide 25% 56 GM Spray Bottle TOP PRN (13:45)
== END 2021-08-06 14:38 | disposition home or self-care (01) ==
LOC: JP.ED 12:26
DX: T83.011A Breakdown (mechanical) of indwelling urethral catheter, initial encounter (principal); L24.A2 Irritant contact dermatitis due to fecal, urinary or dual incontinence; F17.210 Nicotine dependence, cigarettes, uncomplicated; Z88.0 Allergy status to penicillin; Z88.8 Allergy status to other drugs, medicaments and biological substances; Z79.899 Other long term (current) drug therapy; Z90.49 Acquired absence of other specified parts of digestive tract
CPT/HCPCS: 51702; 99283; A9270

== ENCOUNTER 2021-08-11 12:36 | Emergency (ER) | payer MEDICARE ==
[2021-08-11 15:23] VITALS: BP 142/42; PULSE 50
--- NOTE | 2021-08-11 16:10 | EDM.PDOC ---
ED HPI GENERAL MEDICAL PROBLEM - General Chief Complaint: Genitourinary Problem Stated Complaint: CATHADER IS PLUGGED Time Seen by Provider: 08/11/21 16:05 Source of Information: Reports: Patient, RN Notes Reviewed History Limitations: Reports: No Limitations - History of Present Illness INITIAL COMMENTS - FREE TEXT/NARRATIVE: 75-year-old female presents to the emergency department today with catheter dysfunction, however because of the weight of approximately 3 hours by the time she is assessed by the nursing staff her catheter is not functioning. 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 L5. Musculoskeletal Surgical History: Reports: Hip Replacement, Other (See Below) Other Musculoskeletal Surgeries/Procedures:: partial left hip replacement, arm fracture repair Dermatological Surgical History: Reports: None Social & Family History - Family History Family Medical History: No Pertinent Family History - Tobacco Use Tobacco Use Status *Q: Heavy Tobacco User Years of Tobacco use: 60 Packs/Tins Daily: 0.5 - Caffeine Use Caffeine Use: Reports: Coffee ED ROS GENERAL - Review of Systems Review Of Systems: See Below : Reports: Urinary Retention ED EXAM, RENAL/ - Physical Exam Exam: See Below Exam Limited By: No Limitations General Appearance: Alert, WD/WN, No Apparent Distress GI/Abdominal: Soft, Non-Tender Course - Vital Signs Last Recorded V/S: Last Vital Signs Temp 97.1 F 08/11/21 15:39 Pulse 50 L 08/11/21 15:39 Resp 16 08/11/21 15:39 BP 142/42 H 08/11/21 15:39 Pulse Ox 95 08/11/21 15:39 - Orders/Labs/Meds Orders: Active Orders 24 hr Category Date Time Status Bladder Scan [RC] ASDIRECTED Care 08/11/21 15:29 Active Schumacher Catheter Insertion [Insert Urinary Catheter] [OM. Care 08/11/21 15:30 Ordered PC] Q24H Urinary Catheter Assessment [RC] ASDIRECTED Care 08/11/21 15:30 Active Departure - Departure Time of Disposition: 16:10 Disposition: Home, Self-Care 01 Condition: Good Clinical Impression: Malfunction of Schumacher catheter Qualifiers: Encounter type: initial encounter Qualified Code(s): T83.011A - Breakdown (mechanical) of indwelling urethral catheter, initial encounter - Discharge Information Instructions: Indwelling Urinary Catheter Care, Adult Referrals: Man Ann MD [Primary Care Provider] - Additional Instructions: Follow-up with primary care as needed Sepsis Event Note (ED) - Evaluation Sepsis Screening Result: No Definite Risk - Focused Exam Vital Signs: Vital Signs Temp Pulse Resp BP Pulse Ox 08/11/21 15:39 97.1 F 50 L 16 142/42 H 95 08/11/21 15:22 97.1 F 50 L 16 142/42 H 95 - My Orders Last 24 Hours: My Active Orders 08/11/21 15:29 Bladder Scan [RC] ASDIRECTED 08/11/21 15:30 Schumacher Catheter Insertion [Insert Urinary Catheter] [OM.PC] Q24H Urinary Catheter Assessment [RC] ASDIRECTED - Assessment/Plan Last 24 Hours: My Active Orders 08/11/21 15:29 Bladder Scan [RC] ASDIRECTED 08/11/21 15:30 Schumacher Catheter Insertion [Insert Urinary Catheter] [OM.PC] Q24H Urinary Catheter Assessment [RC] ASDIRECTED Plan: Assessment Acuity = acute Site and laterality = catheter no function Etiology = unknown Manifestations = none Location of injury = Home Lab values = none Plan Nursing staff did teaching for flushing cath follow-up with primary care as needed This note was dictated using [email or web address] voice recognition software please call with any questions on syntax or grammar.
== END 2021-08-11 16:25 | disposition home or self-care (01) ==
LOC: JP.ED 12:36
DX: T83.098A Other mechanical complication of other urinary catheter, initial encounter (principal); Z72.0 Tobacco use; Z88.0 Allergy status to penicillin; Z88.4 Allergy status to anesthetic agent
CPT/HCPCS: 51702; 99283-25

== ENCOUNTER 2021-11-11 14:33 | Emergency (ER) | payer MEDICARE ==
[2021-11-11 14:58] VITALS: BP 137/71; PULSE 84
== END 2021-11-11 15:49 | disposition home or self-care (01) ==
LOC: JP.ED 14:33
DX: R12 Heartburn (principal); Z88.0 Allergy status to penicillin; Z88.4 Allergy status to anesthetic agent; Z88.7 Allergy status to serum and vaccine; Z72.0 Tobacco use
CPT/HCPCS: 99283

== ENCOUNTER 2021-11-14 10:30 | Emergency (ER) | payer MEDICARE ==
[2021-11-14] MEDS ORDERED: Simethicone 125 MG Tab.Chew PO ONE (11:02)
[2021-11-14] MEDS ORDERED: Albuterol/Ipratropium 3.0-0.5 MG/3 ML Neb Soln NEB ONE (11:03)
[2021-11-14 12:21] VITALS: BP 143/41; PULSE 80
[2021-11-14] MEDS ORDERED: Potassium Chloride 20 MEQ in Premix Bag 1 BAG IV ONE (12:31)
[2021-11-14] MEDS ORDERED: Sodium Chloride 0.9% 10 ML Syringe FLUSH PRN (12:44)
[2021-11-14] MEDS ORDERED: Iopamidol 612 MG/ML 100 ML Bottle IV PRN (12:44)
[2021-11-14] MEDS ORDERED: Sodium Chloride 0.9% 80 ML IV ONE (12:44)
[2021-11-14] MEDS ORDERED: Lactated Ringers 1,000 ML IV SCH (12:45)
[2021-11-14 14:00] LABS: CORONAVIRUS COVID-19 NAA POSITIVE (NEGATIVE)
== END 2021-11-14 15:22 | disposition home or self-care (01) ==
LOC: JP.ED 10:30
DX: U07.1 COVID-19 (principal); J12.82 Pneumonia due to coronavirus disease 2019; J44.0 Chronic obstructive pulmonary disease with (acute) lower respiratory infection; R09.02 Hypoxemia; D61.818 Other pancytopenia; Z88.0 Allergy status to penicillin; Z91.041 Radiographic dye allergy status; Z88.7 Allergy status to serum and vaccine; Z72.0 Tobacco use; Z79.899 Other long term (current) drug therapy
CPT/HCPCS: 0241U; 36415; 71260; 74019; 74177; 80053; 85025; 96365; 96366; 99284; A9270; J3480; J7120; Q9967; J7620-GY

== ENCOUNTER 2021-11-24 14:19 | Emergency (ER) | payer MEDICARE ==
[2021-11-24] MEDS ORDERED: Oxymetazoline 0.05% Nasal Spray 30 ML Bottle NAS ONE (14:26)
[2021-11-24] MEDS ORDERED: Azithromycin 250 MG Tab PO ONE (15:09)
[2021-11-24 15:35] VITALS: BP 93/48
[2021-11-24 15:36] VITALS: PULSE 74
== END 2021-11-24 16:15 | disposition home or self-care (01) ==
LOC: JP.ED 14:19
DX: J01.90 Acute sinusitis, unspecified (principal); I95.1 Orthostatic hypotension; D64.9 Anemia, unspecified; J44.9 Chronic obstructive pulmonary disease, unspecified; F17.200 Nicotine dependence, unspecified, uncomplicated; Z88.0 Allergy status to penicillin; Z88.4 Allergy status to anesthetic agent; Z88.7 Allergy status to serum and vaccine
CPT/HCPCS: 36415; 80048; 85025; 93005; 99284; A9270

== ENCOUNTER 2022-06-17 15:37 | Emergency (ER) | payer MEDICARE ==
[2022-06-17 16:43] VITALS: BP 173/86; PULSE 91
== END 2022-06-17 18:16 | disposition home or self-care (01) ==
LOC: JP.ED 15:37
DX: R33.9 Retention of urine, unspecified (principal); R31.0 Gross hematuria; F17.210 Nicotine dependence, cigarettes, uncomplicated; Z88.1 Allergy status to other antibiotic agents; Z88.4 Allergy status to anesthetic agent; Z88.7 Allergy status to serum and vaccine; Z79.899 Other long term (current) drug therapy; Z90.49 Acquired absence of other specified parts of digestive tract
CPT/HCPCS: 51702; 81001; 99283

== ENCOUNTER 2022-07-03 16:24 | Emergency (ER) | payer MEDICARE ==
[2022-07-03 17:15] VITALS: BP 138/56; PULSE 86
== END 2022-07-03 19:29 | disposition home or self-care (01) ==
LOC: JP.ED 16:24
DX: Z46.6 Encounter for fitting and adjustment of urinary device (principal); N39.0 Urinary tract infection, site not specified; E78.00 Pure hypercholesterolemia, unspecified; F17.210 Nicotine dependence, cigarettes, uncomplicated; Z88.1 Allergy status to other antibiotic agents; Z88.4 Allergy status to anesthetic agent; Z79.899 Other long term (current) drug therapy
CPT/HCPCS: 51702; 81001; 87086; 87088; 87186; 99283

== ENCOUNTER 2023-07-25 09:34 | Emergency (ER) | payer MEDICARE ==
[2023-07-25 09:40] VITALS: BP 168/81; PULSE 86
== END 2023-07-25 11:43 | disposition left against medical advice (07) ==
LOC: JP.ED 09:34
DX: Z53.21 Procedure and treatment not carried out due to patient leaving prior to being seen by health care provider (principal)

== ENCOUNTER 2024-04-20 09:06 | Emergency (ER) | payer MEDICARE ==
[2024-04-20 09:23] VITALS: BP 167/76; PULSE 86
[2024-04-20] MEDS: Na Phos,M-B/Na Phos,DI-B 60 ML, Mineral Oil 50 ML, Docusate Sodium 400 MG, Magnesium Ci... RECTAL ONE (11:52)
== END 2024-04-20 13:42 | disposition home or self-care (01) ==
LOC: JP.ED 09:06
DX: K59.04 Chronic idiopathic constipation (principal); J45.909 Unspecified asthma, uncomplicated; E78.00 Pure hypercholesterolemia, unspecified; F17.210 Nicotine dependence, cigarettes, uncomplicated; Z90.49 Acquired absence of other specified parts of digestive tract; Z79.899 Other long term (current) drug therapy; Z88.0 Allergy status to penicillin; Z88.8 Allergy status to other drugs, medicaments and biological substances
CPT/HCPCS: 74018; 99283; A9270

== ENCOUNTER 2024-10-08 06:41 | Emergency (ER) | payer MEDICARE ==
[2024-10-08 07:36] LABS: BASOPHILS PERCENT AUTO 0.2 % (0.1-1.3); EOSINOPHILS ABSOLUTE AUTO 0.11 K/uL (0.00-0.40); EOSINOPHILS PERCENT AUTO 1.7 % (0.0-5.4); HEMATOCRIT 36.6 % (34.3-46.0); HEMOGLOBIN 12.6 g/dL (11.2-15.5); IMMATURE GRAN PERCENT AUTO 0.3 % (0.0-0.7); LYMPHOCYTES ABSOLUTE AUTO 1.17 K/uL (0.8-3.3); LYMPHOCYTES PERCENT AUTO 17.9 % (11.4-47.7); MEAN CORPUSCULAR HEMOGLOBIN 31.5 pg (31.6-35.5); MEAN CORPUSCULAR HGB CONC 34.4 g/dL (31.6-35.5); MEAN CORPUSCULAR VOLUME 91.5 fL (81.4-99.0); MONOCYTES ABSOLUTE AUTO 0.81 K/uL (0.20-0.90); MONOCYTES PERCENT AUTO 12.4 % (3.3-12.6); NEUTROPHILS ABSOLUTE AUTO 4.42 K/uL (1.0-7.6); NEUTROPHILS PERCENT AUTO 67.5 % (40.0-78.1); PLATELET COUNT,PLT 158 K/uL (130-375); WHITE BLOOD CELL COUNT,WBC 6.5 K/uL (3.2-11.0)
[2024-10-08] MEDS: HYDROmorphone 0.5 MG/0.5 ML Syringe IVPUSH PRN (07:36)
[2024-10-08 07:37] LABS: BASE EXCESS VENOUS 3.1 mm/L; BICARBONATE,VENOUS 27.6 mmol/L; CARBOXYHEMOGLOBIN 3.3 % (0.0-1.6); METHEMOGLOBIN 0.8 %; O2 SATURATION VENOUS 88.2; OXYHEMOGLOBIN 84.6 %; PCO2 VENOUS 43.8 mm/Hg; PH,VENOUS 7.416 (7.350-7.450); PO2 VENOUS 55.3 mm/Hg; TOTAL HEMOGLOBIN 12.8 g/dL (12.0-16.0)
[2024-10-08 07:41] LABS: BASOPHILS ABSOLUTE AUTO 0.01 K/uL (0.00-0.10); IMMATURE GRAN ABSOLUTE AUTO 0.02 K/uL (0.00-0.23)
[2024-10-08 07:58] LABS: PROTHROMBIN TIME 10.3 sec (9.2-10.6)
[2024-10-08] MEDS: Sodium Chloride 0.9% 500 ML IV ONE (08:08)
[2024-10-08 08:09] LABS: ALANINE AMINOTRANSFERASE,ALT 22 U/L (12-78); ALBUMIN 3.3 g/dL (3.4-5.0); ALKALINE PHOSPHATASE 81 U/L (46-116); ANION GAP 5.3 mmol/L (5.0-14.0); ASPARTATE AMNIOTRANSFERASE,AST 22 U/L (15-37); BILIRUBIN TOTAL 0.6 mg/dL (0.2-1.0); BLOOD UREA NITROGEN,BUN 21 mg/dL (7-18); CALCIUM 8.8 mg/dL (8.5-10.1); CARBON DIOXIDE,CO2 31 mmol/L (21-32); CHLORIDE,CL 106 mmol/L (100-108); CREATININE 0.8 mg/dL (0.6-1.0); EST CRCL DRUG DOSING (CG) 47.94 mL/min; ESTIMATED GFR 75 mL/min (>60); GLUCOSE RANDOM 110 mg/dL (74-106); POTASSIUM,K 3.9 mmol/L (3.6-5.2); PROTEIN TOTAL,TP 6.5 g/dL (6.4-8.2); SODIUM,NA 142 mmol/L (140-148)
[2024-10-08] MEDS: Sodium Chloride 0.9% 80 ML IV SCH (09:27)
[2024-10-08] MEDS: Sodium Chloride 0.9% 10 ML Syringe FLUSH ONE (09:27)
[2024-10-08] MEDS: Iopamidol 612 MG/ML 100 ML Bottle IV SCH (09:27)
[2024-10-08 10:03] VITALS: BP 147/60; PULSE 73
== END 2024-10-08 11:00 | disposition left against medical advice (07) ==
LOC: JP.ED 06:41
DX: S22.42XA Multiple fractures of ribs, left side, initial encounter for closed fracture (principal); S22.070A Wedge compression fracture of T9-T10 vertebra, initial encounter for closed fracture; E78.00 Pure hypercholesterolemia, unspecified; J45.909 Unspecified asthma, uncomplicated; Z90.49 Acquired absence of other specified parts of digestive tract; Z79.899 Other long term (current) drug therapy; Z88.0 Allergy status to penicillin; Z88.8 Allergy status to other drugs, medicaments and biological substances; W01.0XXA Fall on same level from slipping, tripping and stumbling without subsequent striking against object, initial encounter
CPT/HCPCS: 36415; 71260; 74177; 80053; 80307; 82803; 84484; 85025; 85610; 93005; 96361; 96374; 99285; J1171; J3490; J7030; Q9967; 93010

== ENCOUNTER 2024-10-09 07:34 | Emergency (ER) | payer MEDICARE ==
[2024-10-09] MEDS ORDERED: Sodium Chloride 0.9% 10 ML Syringe FLUSH PRN (08:11)
[2024-10-09 08:28] LABS: BASOPHILS PERCENT AUTO 0.3 % (0.1-1.3); EOSINOPHILS ABSOLUTE AUTO 0.37 K/uL (0.00-0.40); EOSINOPHILS PERCENT AUTO 5.3 % (0.0-5.4); HEMATOCRIT 35.1 % (34.3-46.0); HEMOGLOBIN 11.8 g/dL (11.2-15.5); IMMATURE GRAN PERCENT AUTO 0.3 % (0.0-0.7); LYMPHOCYTES ABSOLUTE AUTO 1.38 K/uL (0.8-3.3); LYMPHOCYTES PERCENT AUTO 19.9 % (11.4-47.7); MEAN CORPUSCULAR HEMOGLOBIN 31.2 pg (31.6-35.5); MEAN CORPUSCULAR HGB CONC 33.6 g/dL (31.6-35.5); MEAN CORPUSCULAR VOLUME 92.9 fL (81.4-99.0); MONOCYTES ABSOLUTE AUTO 0.88 K/uL (0.20-0.90); MONOCYTES PERCENT AUTO 12.7 % (3.3-12.6); NEUTROPHILS ABSOLUTE AUTO 4.28 K/uL (1.0-7.6); NEUTROPHILS PERCENT AUTO 61.5 % (40.0-78.1); PLATELET COUNT,PLT 147 K/uL (130-375); RED BLOOD CELL COUNT 3.78 M/uL (3.77-5.24)
[2024-10-09 08:29] LABS: BASOPHILS ABSOLUTE AUTO 0.02 K/uL (0.00-0.10); IMMATURE GRAN ABSOLUTE AUTO 0.02 K/uL (0.00-0.23)
[2024-10-09] MEDS: fentaNYL 100 MCG/2 ML SDV IVPUSH ONE (08:33)
[2024-10-09 08:49] LABS: ALANINE AMINOTRANSFERASE,ALT 21 U/L (12-78); ALBUMIN 3.2 g/dL (3.4-5.0); ALKALINE PHOSPHATASE 68 U/L (46-116); ANION GAP 8.1 mmol/L (5.0-14.0); ASPARTATE AMNIOTRANSFERASE,AST 19 U/L (15-37); BILIRUBIN TOTAL 0.6 mg/dL (0.2-1.0); BLOOD UREA NITROGEN,BUN 16 mg/dL (7-18); CALCIUM 8.9 mg/dL (8.5-10.1); CARBON DIOXIDE,CO2 29 mmol/L (21-32); CHLORIDE,CL 105 mmol/L (100-108); CREATININE 0.8 mg/dL (0.6-1.0); EST CRCL DRUG DOSING (CG) 47.94 mL/min; ESTIMATED GFR 75 mL/min (>60); GLUCOSE RANDOM 90 mg/dL (74-106); POTASSIUM,K 3.7 mmol/L (3.6-5.2); PROTEIN TOTAL,TP 6.4 g/dL (6.4-8.2); SODIUM,NA 142 mmol/L (140-148)
[2024-10-09 09:09] VITALS: BP 129/43; PULSE 67
== END 2024-10-09 11:02 | disposition home or self-care (01) ==
LOC: JP.ED 07:34
DX: S22.42XA Multiple fractures of ribs, left side, initial encounter for closed fracture (principal); J45.909 Unspecified asthma, uncomplicated; E78.00 Pure hypercholesterolemia, unspecified; Z87.891 Personal history of nicotine dependence; Z90.49 Acquired absence of other specified parts of digestive tract; Z90.722 Acquired absence of ovaries, bilateral; Z96.649 Presence of unspecified artificial hip joint; Z88.0 Allergy status to penicillin; Z88.4 Allergy status to anesthetic agent; Z88.7 Allergy status to serum and vaccine; Z79.51 Long term (current) use of inhaled steroids; Z79.899 Other long term (current) drug therapy; X58.XXXA Exposure to other specified factors, initial encounter
CPT/HCPCS: 36415; 80053; 83605; 85025; 96374; 99284; J3010